=== PATIENT | male | born 1950 | race Two or more races ===

== ENCOUNTER 2024-10-07 08:57 | Emergency (ER) | payer OTHER ==
[~2024-10-07] VITALS: Ht 188 cm; Wt 100.0 kg
[2024-10-07 10:14] VITALS: BP 102/60; PULSE 69; RESP 18; TEMP 97.4; O2SAT 98
--- NOTE | 2024-10-07 11:11 | ED.PDOC ---
Eye-HPI HPI Comments [facility]BS Chief Complaint: Eye Problem Time Seen by MD: 09:23 Primary Care Provider: GIOVANI Reviewed Notes: Nurses Notes, Medications, Allergies Allergies: Coded Allergies: Acetaminophen (Verified Allergy, Unknown, 10/07/24) Information Source: Patient Mode of Arrival: Wheelchair All Other Systems: Reviewed and Negative (per hpi) Physical Exam General Appearance: No Apparent Distress, Normal HEENT: Normal ENT Inspection, Pharynx Normal, TMs Normal Neck: Full Range of Motion, Non-Tender, Normal, Normal Inspection Respiratory: Chest Non-Tender, Lungs Clear, No Accessory Muscle Use, No Respiratory Distress, Normal Breath Sounds Cardiovascular: No Edema, No JVD, No Murmur, No Gallop, Normal Peripheral Pulses, Regular Rate/Rhythm Breast Exam: Deferred Gastrointestinal: No Organomegaly, Non Tender, No Pulsatile Mass, Normal Bowel Sounds, Soft Genitalia: Deferred Pelvic: Deferred Rectal: Deferred Extremities: No calf tenderness, Normal capillary refill, Normal inspection, Normal range of motion, Non-tender, No pedal edema Musculoskeletal : Apperance: Normal Neurologic: Alert, binman II-XII nml as Tested, No Motor Deficits, Normal Affect, Normal Mood, No Sensory Deficits Cerebellar Function: Normal Reflexes: Normal Skin: Dry, Normal Color, Warm Lymphatic: No Adenopathy Was a procedure done? Was a procedure done?: No EENT DIFF Eye: Other X-Ray, Labs, Meds, VS Vital Signs Date Time Temp Pulse Resp B/P (MAP) Pulse Ox O2 Delivery O2 Flow Rate FiO2 10/07/24 10:14 97.4 69 18 102/60 (74) 98 97.4 10/07/24 10:14 69 18 98 Room Air 10/07/24 09:02 97.4 69 18 102/60 (74) 98 X-Ray, Labs, Meds, VS Comment LWBS Time of 1ST Reevaluation: 13:24 Reevaluation 1ST: Unchanged Patient Education/Counseling: Diagnosis, Treatment Family Education/Counseling: Diagnosis, Treatment Departure 1 Departure Time of Disposition: 13:24 Impression: Primary Impression: Patient left without being seen Disposition: 01 HOME / SELF CARE / HOMELESS Condition: Other Critical Care Note Critical Care Time?: No Stability Stability form required: No Heart Score Heart Score: Heart Score Response (Comments) Value History N/A 0 EKG N/A 0 Age N/A 0 Risk Factors N/A 0 Troponin N/A 0 Total 0 JOYCE MAK NP Oct 07, 2024 11:11
[2024-10-07] MEDS ORDERED: FLUOCINONIDE 0.05% TOP CREAM 15GM TOP ONE (11:15)
[2024-10-07] MEDS: TETRACAINE HCL 0.5% OPTH(EYE) SOLN 4ML RIGHTEYE ONE (11:16)
[2024-10-07] MEDS: FLUORESCEIN SOD OPTH TEST STRIP RIGHTEYE ONE (11:16)
== END 2024-10-07 11:36 | disposition left against medical advice (07) ==
LOC: ER 08:57
DX: H57.12 Ocular pain, left eye (principal)